=== PATIENT | female | born 1995 | race Caucasian/White ===

== ENCOUNTER → 2020-05-20 09:32 | Outpatient (BNVA) | payer MEDICAID, SELFPAY | PROVIDERS: Visit Provider Advanced Practice Midwife | DX: Z34.90 Encounter for supervision of normal pregnancy, unspecified, unspecified trimester (principal) | CPT/HCPCS: 99202 ==

== ENCOUNTER 2020-05-24 14:22 | Outpatient (REF) | payer MEDICAID, SELFPAY ==
--- NOTE | 2020-05-24 14:36 | US_ITS ---
EXAMINATION: OB ULTRASOUND CLINICAL INFORMATION: Check size and dates COMPARISON: None TECHNIQUE: Transabdominal first trimester OB ultrasound FINDINGS: The uterus is normal in size and shape. There is an intrauterine gestational sac. [place]-rump length measures 0.7 cm suggesting gestational age of 6 weeks 4 days with estimated date of delivery of 01/13/2021. heart rate is 122 bpm. There is a yolk sac. The cervix is normal appearing. The left maternal ovary is not seen. The right maternal ovary is normal and measures 2.8 x 2.1 x 2.5 cm. There is no fluid in the pelvis. US/US OB limited IMPRESSION: Single viable intrauterine . From today's measurements, gestational age is estimated at 6 weeks 4 days with estimated date of delivery of 01/13/2021.
== END 2020-05-24 14:23 | disposition home or self-care (01) ==
LOC: HO.HMGCX 14:22
PROVIDERS: Visit Provider Advanced Practice Midwife
DX: Z34.90 Encounter for supervision of normal pregnancy, unspecified, unspecified trimester (principal)
CPT/HCPCS: 76815

== ENCOUNTER → 2020-06-21 14:01 | Outpatient (BNVA) | payer MEDICAID, SELFPAY | PROVIDERS: PCP Family Medicine; Visit Provider Advanced Practice Midwife | DX: Z76.89 Persons encountering health services in other specified circumstances (principal) | CPT/HCPCS: 99212 ==

== ENCOUNTER 2020-06-25 15:12 | Outpatient (REF) | payer MEDICAID, SELFPAY ==
--- NOTE | 2020-06-25 15:19 | US_ITS ---
EXAMINATION: OBSTETRICAL ULTRASOUND, FIRST TRIMESTER HISTORY: 24-year-old at 11.1 weeks of gestation Medication exposure NT screening COMPARISON: 05/24/2020 TECHNIQUE: Real time transabdominal imaging with color and M-mode Doppler. FINDINGS: A single, live IUP CRL of 53 mm c/w 12.0wks is noted. Heart Rate: 153 beats per minute. Normal yolk sac seen. NT was 1.2.mm. NB Present The embryo appears sonographically wnl for this GA. Bilateral ovaries were within normal limits. GESTATIONAL AGE: 1. Established GA: 11.1 wks 2. GA from [facility]: 12.0 wks ESTIMATED DATE OF DELIVERY: 1. Established HIEN: 01/13/2021 2. [facility] 01[facility]07[facility] US/US OB 1T nuc measure IMPRESSION: 1. A single live IUP 2. Size equals dates 3. NT of 1.2 mm MFM Consultation: I reviewed the ultrasound findings along with significance of NT measurement. The NT of less than 3mm is generally reassuring. However, the sensitivity for T21 detection is only 60%. I reviewed the availability of serum aneuploidy screening which includes cell-free DNA and placental protein based tests. I discussed the sensitivity, false-positive rate, and other limitations associated with each test. I also reviewed the availability of invasive diagnostic tests that are associated small but definite risk of miscarriage. We also reviewed the differences between screening tests and diagnostic tests. After our discussion, she opted for the First trimester screening that is based on cell-free DNA or non-invasive testing (NIPT). N IPT was ordered today. Patient is on the Subutex 5 mg q.d. and Abilify 15 mg q.d. Although there is increased risk of adaptation syndrome noted in fetuses exposed to these agents, use of these medications during is acceptable as long as there is maternal indication. Neonatologists should be made aware at the time of delivery. There is no human data to support increased risk of congenital abnormalities associated with these two medications. However the available data is limited. The result will be faxed to your office in approximately 7 days. A follow up at 18 weeks for survey has been scheduled. Thank you very much for this referral. Total Time 30 min. (3,17,10)
== END 2020-06-25 15:13 | disposition home or self-care (01) ==
LOC: HO.US 15:12
PROVIDERS: PCP Family Medicine; Visit Provider Advanced Practice Midwife
DX: Z36.82 Encounter for antenatal screening for nuchal translucency (principal)
CPT/HCPCS: 76813

== ENCOUNTER 2020-07-01 13:26 | Outpatient (REF) | payer MEDICAID, SELFPAY ==
[2020-07-02 04:35] LABS: Syphilis Screen Nonreactive (Nonreactive)
[2020-07-02 04:42] LABS: ~HepC Num1 18.48 S/CO (0.00-0.79); ~Hepatitis C Antibody Reactive (Nonreactive)
[2020-07-02 04:50] LABS: HBsAGNum1 0.18 S/CO (0.00-0.99); HIV AB/AG Nonreactive (Nonreactive); HIV Num 1 0.08 S/CO (0.00-0.99); Hepatitis B Surface Antigen Negative (Negative)
[2020-07-02 17:18] LABS: Rubella IgG Antibody 0.99 Index
== END 2020-07-01 13:27 | disposition home or self-care (01) ==
LOC: HO.LAB 13:26
PROVIDERS: Visit Provider Advanced Practice Midwife
DX: Z34.90 Encounter for supervision of normal pregnancy, unspecified, unspecified trimester (principal)
CPT/HCPCS: 36415; 86762; 86780; 86787; 86803; 86850; 86900; 86901; 87340; 87389

== ENCOUNTER 2020-07-02 13:30 | Outpatient (REF) | payer MEDICAID, SELFPAY ==
[2020-07-02 15:01] LABS: MANUAL DIFF FLAG NO
[2020-07-02 15:15] LABS: Basophils Percent Auto 0.6 % (0-2); Eosinophils Absolute Auto 0.1 X10*3/uL (0.0-0.4); Eosinophils Percent Auto 2.5 % (0-4); Hematocrit 37.8 % (37-47); Hemoglobin 13.1 g/dl (12.0-16.0); Imm Gran Abs Auto 0.01 X10*3/uL (0.00-0.03); Imm Gran Pct Auto 0.2 % (0.0-0.4); Mean Corpuscular HGB Conc 34.7 g/dl (31.0-35.0); Mean Corpuscular Hemoglobin 30.5 pg (27.0-33.0); Mean Corpuscular Volume 88.1 fL (80-98); Monocytes Absolute Auto 0.3 X10*3/uL (0.1-1.2); Monocytes Percent Auto 5.5 % (2-11); Neutrophils Absolute Auto 2.8 X10*3/uL (2.0-8.3); Neutrophils Percent Auto 53.2 % (45-73); Platelet Count 207 X10*3/uL (160-400); Red Blood Count 4.29 X10*6/uL (4.20-5.50); Red Cell Distribution Width 11.7 % (11.0-16.0); White Blood Count 5.2 X10*3/uL (4.8-10.8)
[2020-07-02 15:26] LABS: Amphetamine Screen Urine Not Detected (Not Detect); Barbiturates, Urine Not Detected (Not Detect); Benzodiazepines Screen Urine Not Detected (Not Detect); Cannabinoid Screen Urine Not Detected (Not Detect); Cocaine Screen Urine POSITIVE (Not Detect); Opiate Screen Urine Not Detected (Not Detect); Phencyclidine Screen Urine Not Detected (Not Detect)
== END 2020-07-02 13:31 | disposition home or self-care (01) ==
LOC: HO.LAB 13:30
PROVIDERS: Visit Provider Advanced Practice Midwife
DX: Z34.90 Encounter for supervision of normal pregnancy, unspecified, unspecified trimester (principal)
CPT/HCPCS: 80307; 85025; 87086

== ENCOUNTER 2020-07-02 14:43 | Outpatient (REF) | payer MEDICAID, SELFPAY | END 2020-07-02 14:44 | disposition home or self-care (01) | LOC: HO.LNP 14:43 | DX: Z13.89 Encounter for screening for other disorder (principal) ==

== ENCOUNTER 2020-07-07 15:16 | Outpatient (REF) | payer MEDICAID, SELFPAY ==
[2020-07-07 17:58] LABS: Prothrombin Time 11.4 SEC (10.8-13.0)
[2020-07-07 18:08] LABS: Alanine Aminotransferase 26 U/L (0-31); Albumin Level 4.2 g/dL (3.5-5.0); Alkaline Phosphatase 61 U/L (39-117); Aspartate Amino Transferase 24 U/L (5-31); Bilirubin Direct < 0.2 mg/dL (0.0-0.5)
== END 2020-07-07 15:17 | disposition home or self-care (01) ==
LOC: HO.LAB 15:16
PROVIDERS: PCP Family Medicine; Visit Provider Advanced Practice Midwife
DX: O09.899 Supervision of other high risk pregnancies, unspecified trimester (principal); R76.8 Other specified abnormal immunological findings in serum; Z3A.00 Weeks of gestation of pregnancy not specified
CPT/HCPCS: 36415; 82040; 82248; 84075; 84450; 84460; 85610; 87522

== ENCOUNTER 2020-07-09 14:30 | Outpatient (REF) | payer MEDICAID, SELFPAY ==
[2020-07-09 17:20] LABS: Amphetamine Screen Urine Not Detected (Not Detect); Barbiturates, Urine Not Detected (Not Detect); Benzodiazepines Screen Urine Not Detected (Not Detect); Cannabinoid Screen Urine Not Detected (Not Detect); Cocaine Screen Urine Not Detected (Not Detect); Opiate Screen Urine Not Detected (Not Detect); Phencyclidine Screen Urine Not Detected (Not Detect)
[2020-07-10 11:46] LABS: BV Int Neg Control Negative (Negative); BV Int Pos Control Positive (Positive)
[2020-07-15 15:30] LABS: C. trachomatis RNA TMA NOT DETECTED; N. gonorrhoeae RNA TMA NOT DETECTED
== END 2020-07-09 14:31 | disposition home or self-care (01) ==
LOC: HO.LAB 14:30
PROVIDERS: PCP Family Medicine; Visit Provider Advanced Practice Midwife
DX: O09.899 Supervision of other high risk pregnancies, unspecified trimester (principal); O99.321 Drug use complicating pregnancy, first trimester; F11.21 Opioid dependence, in remission; Z3A.13 13 weeks gestation of pregnancy; Z79.899 Other long term (current) drug therapy; Z71.51 Drug abuse counseling and surveillance of drug abuser
CPT/HCPCS: 36415; 80307; 81003; 87480; 87491; 87510; 87591; 87624; 87660; 88141; 88142; 99212

== ENCOUNTER → 2020-07-13 13:27 | Outpatient (BNVA) | payer MEDICAID, SELFPAY | PROVIDERS: PCP Family Medicine; Referring Provider Advanced Practice Midwife; Visit Provider Internal Medicine ==

== ENCOUNTER → 2020-08-12 13:21 | Outpatient (BNVA) | payer MEDICAID, SELFPAY | PROVIDERS: Visit Provider Advanced Practice Midwife | DX: O99.320 Drug use complicating pregnancy, unspecified trimester (principal); O09.899 Supervision of other high risk pregnancies, unspecified trimester; F14.11 Cocaine abuse, in remission; F11.20 Opioid dependence, uncomplicated; B19.20 Unspecified viral hepatitis C without hepatic coma | CPT/HCPCS: 81003; 99212 ==

== ENCOUNTER 2020-08-17 13:11 | Outpatient (REF) | payer MEDICAID, SELFPAY ==
[2020-08-17 15:00] LABS: Amphetamine Screen Urine Not Detected (Not Detect); Barbiturates, Urine Not Detected (Not Detect); Benzodiazepines Screen Urine Not Detected (Not Detect); Cannabinoid Screen Urine Not Detected (Not Detect); Cocaine Screen Urine Not Detected (Not Detect); Opiate Screen Urine Not Detected (Not Detect); Phencyclidine Screen Urine Not Detected (Not Detect)
[2020-08-18 22:57] LABS: C. trachomatis RNA TMA NOT DETECTED (NOT DETECTED); N. gonorrhoeae RNA TMA NOT DETECTED (NOT DETECTED)
== END 2020-08-17 13:12 | disposition home or self-care (01) ==
LOC: HO.LAB 13:11
PROVIDERS: Visit Provider Advanced Practice Midwife
DX: O09.899 Supervision of other high risk pregnancies, unspecified trimester (principal); O99.320 Drug use complicating pregnancy, unspecified trimester; F14.11 Cocaine abuse, in remission
CPT/HCPCS: 36415; 80307; 87491; 87591

== ENCOUNTER 2020-08-20 | Outpatient (REF) | payer MEDICAID, SELFPAY | END 2020-08-20 00:01 | disposition home or self-care (01) | LOC: CF | PROVIDERS: Visit Provider Advanced Practice Midwife | DX: O09.899 Supervision of other high risk pregnancies, unspecified trimester (principal); O99.320 Drug use complicating pregnancy, unspecified trimester; Z36.3 Encounter for antenatal screening for malformations; Z3A.19 19 weeks gestation of pregnancy; F11.20 Opioid dependence, uncomplicated; B19.20 Unspecified viral hepatitis C without hepatic coma | CPT/HCPCS: 81003; 99212 ==

== ENCOUNTER 2020-09-10 13:55 | Outpatient (REF) | payer MEDICAID, SELFPAY ==
--- NOTE | ~2020-09-10 | US_ITS ---
EXAMINATION: US OBSTETRICAL CLINICAL INFORMATION: 24-year-old at 22.1 weeks of gestation Medication exposure Screening for anomaly COMPARISON: 06/25/2020 TECHNIQUE: Real-time transabdominal ultrasound was performed using C1-5 megahertz transducer. FINDINGS: A single, active, fetus is seen in vertex presentation. The placenta is anterior without previa, and the amniotic fluid volume is wnl. MEASUREMENTS: 1. Biparietal Diameter: 4.9 cm; 21.0 wks 2. Occipital Frontal Diameter: 7.3 cm 3. Head Circumference: 20.2 cm; 22.3 wks 4. Abdominal Circumference: 17.8 cm; 22.5 wks 5. Femur Length: 4.0 cm; 22.6 wks 6. Humerus Length: 6 3.27 cm; 22.6 wks 7. Tibia Length: 3.5 cm; 23.1 wks 8. Ulna Length: 2.94 cm; 21.0 wks 9. Lateral ventricle: 0.48 cm 10. Cerebellum: 2.2 cm; 22.0 wks 11. Cisterna Magna: 0.64 cm 12. Nuchal Fold: 5.8 mm 13. Heart Rate: 134 beats per minute Rt ovary: Unable to visualize Lt ovary: Unable to visualize Cervical length 2.8 cm on T/A. GESTATIONAL AGE: 1. Established GA: 22.1 wks 2. GA from [facility]: 22.2 wks ESTIMATED DATE OF DELIVERY: 1. Established HIEN: 01/13/2021 2. HIEN from [facility]: 01/12/2021 ANATOMY: The visualized anatomy includes but not limited to: 1. Cranium: Normal 2. Intracranial anatomy: cavum septum pellucidi, lateral ventricles, choroid plexus, cerebellum, posterior fossa, third and fourth ventricles. 3. face: orbits, lip/palate, profile, nasal bone 4. Heart: four-chamber view of the heart, ventricular septum, foramen ovale, pulmonary vein, left and right outflow tracts, three-vessel view, 3 vessel trachea view, aortic and ductal arches, situs.. 5. Diaphragm: Normal 6. Abdominal wall: Normal 7. Cord Insertion: Normal 8. Spine: Cervical, thoracic, lumbar, sacral. 9. Stomach: Normal size and shape 10. Right Kidney: Normal 11. Left Kidney: Normal 12. 3 vessel cord: Normal 13. Upper extremity: Open hands, fifth digit. 14. Lower extremity: Tibia, fibula, bilateral feet. 15. Bladder: Normal 16. Genitalia: Male, patient aware US/US OB /maternal detail IMPRESSION: 1. Single, living, intrauterine with appropriate biometry. 2. Normal survey DISCUSSION: I reviewed today's ultrasound findings. We discussed the limitations of ultrasound in diagnosing aneuploidy and other congenital abnormalities. I reviewed the differences between screening test and diagnostic test. Amniocentesis was discussed and declined. She is doing well on Subutex 5 mg q.d. and Abilify 15 mg q.d. In addition, she reports that her NIPT showed low risk. She was informed that the baseline incidence of congenital abnormalities is approximately 3-5%. Not all these conditions are diagnosable in utero. RECOMMENDATIONS: 1. Follow-up as indicated. Thank you for allowing me to participate in her care. Total time 30 minutes. The time spent was devoted to counseling the patient about the disease and diagnosis, coordinating care including reviewing her records, pertinent lab data and studies, as well as discussing diagnostic evaluation and workup, plan therapeutic interventions and future disposition of care. This includes any additional research needed to obtain further information in formulating the plan of care of this patient. This note was generated with a voice recognition program. Please excuse any errors which may have been overlooked during my review of this note. Sometimes these errors may affect the content or meaning of a given sentence.
== END 2020-09-10 13:56 | disposition home or self-care (01) ==
LOC: HO.US 13:55
PROVIDERS: Visit Provider Advanced Practice Midwife
DX: Z36.3 Encounter for antenatal screening for malformations (principal); O09.899 Supervision of other high risk pregnancies, unspecified trimester; O99.320 Drug use complicating pregnancy, unspecified trimester; F11.20 Opioid dependence, uncomplicated; B19.20 Unspecified viral hepatitis C without hepatic coma
CPT/HCPCS: 76811

== ENCOUNTER 2020-09-14 09:15 | Outpatient (REF) | payer MEDICAID, SELFPAY ==
[2020-09-14 15:15] LABS: Amphetamine Screen Urine Not Detected (Not Detect); Barbiturates, Urine Not Detected (Not Detect); Benzodiazepines Screen Urine Not Detected (Not Detect); Cannabinoid Screen Urine Not Detected (Not Detect); Cocaine Screen Urine Not Detected (Not Detect); Opiate Screen Urine Not Detected (Not Detect); Phencyclidine Screen Urine Not Detected (Not Detect)
== END 2020-09-14 09:16 | disposition home or self-care (01) ==
LOC: HO.LNP 09:15
PROVIDERS: Visit Provider Advanced Practice Midwife
DX: O98.312 Other infections with a predominantly sexual mode of transmission complicating pregnancy, second trimester (principal); A63.0 Anogenital (venereal) warts; O99.322 Drug use complicating pregnancy, second trimester; F11.20 Opioid dependence, uncomplicated; O98.412 Viral hepatitis complicating pregnancy, second trimester; B19.20 Unspecified viral hepatitis C without hepatic coma; O99.342 Other mental disorders complicating pregnancy, second trimester; F41.9 Anxiety disorder, unspecified; F31.9 Bipolar disorder, unspecified; Z3A.22 22 weeks gestation of pregnancy
CPT/HCPCS: 80307; 81003; 99212

== ENCOUNTER → 2020-10-12 14:20 | Outpatient (BNVA) | payer MEDICAID, SELFPAY | PROVIDERS: Visit Provider Advanced Practice Midwife | DX: Z34.93 Encounter for supervision of normal pregnancy, unspecified, third trimester (principal); Z3A.26 26 weeks gestation of pregnancy | CPT/HCPCS: 81003; 99212 ==

== ENCOUNTER 2020-11-18 13:57 | Outpatient (REF) | payer MEDICAID, SELFPAY | END 2020-11-18 13:58 | disposition home or self-care (01) | LOC: HO.LAB 13:57 | PROVIDERS: Visit Provider Advanced Practice Midwife | DX: O99.323 Drug use complicating pregnancy, third trimester (principal); F11.188 Opioid abuse with other opioid-induced disorder; O98.413 Viral hepatitis complicating pregnancy, third trimester; B19.20 Unspecified viral hepatitis C without hepatic coma; O99.343 Other mental disorders complicating pregnancy, third trimester; F41.8 Other specified anxiety disorders; F31.9 Bipolar disorder, unspecified; Z3A.32 32 weeks gestation of pregnancy; Z79.891 Long term (current) use of opiate analgesic; Z79.899 Other long term (current) drug therapy | CPT/HCPCS: 81003; 99212 ==

== ENCOUNTER → 2020-12-02 14:25 | Outpatient (BNVA) | payer MEDICAID, SELFPAY | PROVIDERS: Visit Provider Advanced Practice Midwife | DX: Z34.93 Encounter for supervision of normal pregnancy, unspecified, third trimester (principal); Z3A.34 34 weeks gestation of pregnancy | CPT/HCPCS: 99212 ==

== ENCOUNTER 2020-12-10 13:42 | Outpatient (REF) | payer MEDICAID, SELFPAY ==
--- NOTE | ~2020-12-10 | US_ITS ---
EXAMINATION: OBSTETRICAL ULTRASOUND, Follow up HISTORY: 24-year-old at the 35.1 weeks of gestation Size date discrepancy COMPARISON: 09/10/2020 TECHNIQUE: Real time transabdominal imaging with color and M-mode Doppler. PRESENTATION: Vertex PLACENTA LOCATION: Anterior without previa AMNIOTIC FLUID: MADI 10.5 cm MEASUREMENTS: 1. Biparietal Diameter: 8.7 cm; 35.0 wks 2. Head Circumference: 31.2 cm; 35.0 wks 3. Abdominal Circumference: 31.4 cm; 35.3 wks 4. Femur Length: 6.7 cm; 34.5 wks 5. Heart Rate: 140 beats per minute WEIGHT: EFW: 2611 grams (5 lbs 12 oz) -- 48 %. BIOPHYSICAL PROFILE: Motion: 2 Tone: 2 Breathin Amniotic Fluid: 2 Total score: 8/8 GESTATIONAL AGE: 1. Established GA: 35.1 wks 2. GA from [facility]: 35.1 wks ESTIMATED DATE OF DELIVERY: 1. Established HIEN: 01/13/2021 2. HIEN from [facility]: 01/13/2021 US/US OB follow up IMPRESSION: 1. A single active fetus is in vertex presentation 2. Size equals dates 3. Reassuring biophysical profile Thank you very much for this referral. This note was generated with a voice recognition program. Please excuse any errors which may have been overlooked during my review of this note. Sometimes these errors may affect the content or meaning of a given sentence.
[2020-12-10 15:37] LABS: Amphetamine Screen Urine Not Detected (Not Detect); Barbiturates, Urine Not Detected (Not Detect); Benzodiazepines Screen Urine Not Detected (Not Detect); Cocaine Screen Urine Not Detected (Not Detect); Opiate Screen Urine Not Detected (Not Detect); Phencyclidine Screen Urine Not Detected (Not Detect)
== END 2020-12-10 13:43 | disposition home or self-care (01) ==
LOC: HO.US 13:42
PROVIDERS: Advanced Practice Midwife; Visit Provider Advanced Practice Midwife
DX: O26.893 Other specified pregnancy related conditions, third trimester (principal); F31.9 Bipolar disorder, unspecified; Z87.898 Personal history of other specified conditions
CPT/HCPCS: 76816; 80307

== ENCOUNTER 2020-12-16 15:03 | Outpatient (REF) | payer MEDICAID, SELFPAY ==
[2020-12-17 04:52] LABS: CT PCR NOT DETECTED (Not Detect.); NG PCR NOT DETECTED (Not Detect.)
== END 2020-12-16 15:04 | disposition home or self-care (01) ==
LOC: HO.LAB 15:03
PROVIDERS: PCP Family Medicine; Visit Provider Advanced Practice Midwife
DX: O99.323 Drug use complicating pregnancy, third trimester (principal); F11.20 Opioid dependence, uncomplicated; Z79.899 Other long term (current) drug therapy
CPT/HCPCS: 81003; 87081; 87491; 87591; 99212

== ENCOUNTER 2020-12-17 11:05 | Outpatient (REF) | payer MEDICAID, SELFPAY ==
[2020-12-17 13:17] LABS: Hematocrit 36.6 % (37-47); Hemoglobin 12.1 g/dl (12.0-16.0); Mean Corpuscular HGB Conc 33.1 g/dl (31.0-35.0); Mean Corpuscular Hemoglobin 29.7 pg (27.0-33.0); Mean Corpuscular Volume 89.9 fL (80-98); Mean Platelet Volume 8.9 fL (9.4-12.3); Platelet Count 182 X10*3/uL (160-400); Red Blood Count 4.07 X10*6/uL (4.20-5.50); Red Cell Distribution Width 11.8 % (11.0-16.0); White Blood Count 7.9 X10*3/uL (4.8-10.8)
[2020-12-17 13:42] LABS: Glucose 1 Hour PP 50gm Dose 93 mg/dL (60-140)
[2020-12-17 14:05] LABS: Syphilis Screen Nonreactive (Nonreactive)
== END 2020-12-17 11:06 | disposition home or self-care (01) ==
LOC: HO.LAB 11:05
PROVIDERS: PCP Family Medicine; Visit Provider Advanced Practice Midwife
DX: O26.813 Pregnancy related exhaustion and fatigue, third trimester (principal); Z20.2 Contact with and (suspected) exposure to infections with a predominantly sexual mode of transmission
CPT/HCPCS: 36415; 85027; 86780

== ENCOUNTER → 2020-12-22 13:17 | Outpatient (BNVA) | payer MEDICAID, SELFPAY | PROVIDERS: Visit Provider Obstetrics & Gynecology | DX: O98.413 Viral hepatitis complicating pregnancy, third trimester (principal); B19.20 Unspecified viral hepatitis C without hepatic coma; O09.893 Supervision of other high risk pregnancies, third trimester; F11.11 Opioid abuse, in remission; O21.9 Vomiting of pregnancy, unspecified; Z3A.36 36 weeks gestation of pregnancy | CPT/HCPCS: 99212 ==

== ENCOUNTER → 2020-12-27 15:08 | Outpatient (BNVA) | payer MEDICAID, SELFPAY | PROVIDERS: Visit Provider Internal Medicine ==

== ENCOUNTER 2024-12-14 12:08 | Emergency (ER) | payer OTHER, SELFPAY ==
--- NOTE | ~2024-12-14 | US_ITS ---
CLINICAL HISTORY: surgical 2mo ago, sudden heavy bleeding, US pelvis transabdominal and transvaginal with Doppler Comparison: None provided Findings: Transabdominal scanning performed for overall anatomy. Transvaginal scanning performed for additional detail. Anteverted uterus is 9.3 cm length. Normal myometrium. The endometrium is abnormally thickened, heterogeneous and vascular measuring, 20 mm thickness. Right ovary 3.7 x 1.6 x 2.5 cm. Left ovary 3.5 x 2.9 x 2.8 cm. Normal color Doppler with arterial/venous spectral tracing of both ovaries. No free fluid. IMPRESSION: Heterogeneous, mildly thickened and hypervascular endometrium. If there is a positive quantitative HCG, retained products of conception could have this appearance. This document has been electronically signed by: Billy Luis MD on 12/14/2024 15:11:42
[2024-12-14 12:13] VITALS: BP 110/70; BP 115/70; PULSE 100; PULSE 96; RESP 18; TEMP 36.9; O2SAT 97; BMI 24.3
--- NOTE | 2024-12-14 12:41 | ED_ITS ---
HPI - Female Genitourinary General Chief complaint: Vaginal Bleeding Stated complaint: VAGINAL-BLEEDING Time Seen by Provider: 12/14/24 12:23 Source: patient and EMS Mode of arrival: EMS Limitations: no limitations History of Present Illness ED Provider: Rosario Garcia NP HPI Narrative: Patient is a 28-year-old female G3 [id number] past medical history of substance use disorder, hepatitis-C, bipolar disorder, anxiety who presents emergency department via EMS for evaluation. She was getting on a bus when she had abrupt onset of heavy vaginal bleeding so much so that it was pouring down her legs onto her shoes in the floor on the bus. package car driver called EMS. She admits to having a surgical 2 months ago at [facility]? does not recall which 1, reports she was approximately 3 months at the time of the . She has not had any follow-up since then. She additionally has had no menstrual cycle/vaginal bleeding since the procedure. States she has not had sexually active since. She does express concern for sexually transmitted infections reporting that she has been experiencing void/yellow vaginal discharge for months. She denies dysuria, hematuria, urinary frequency/urgency/hesitancy. She denies any diarrhea or constipation, denies concern for bloody stools; hematochezia or melena. Related Data Home Medications ?Medication ?Instructions ?Recorded ?Confirmed aripiprazole 15 mg tablet (Abilify) 15 mg PO DAILY 09/0411/25/20 vitamin with calcium 1 tab PO DAILY 06/21/20 11/25/20 no.72-iron 27 mg-folic acid 1 mg tablet ( Vitamins Plus Low Iron) buprenorphine HCl 2 mg sublingual 16 mg sublingual BONNIE LY 11/18/20 11/25/20 tablet Previous Rx's ?Medication ?Instructions ?Recorded valacyclovir 500 mg tablet 500 mg PO DAILY 30 days #30 tabs 12/02/20 (Valtrex) ondansetron HCl 4 mg tablet 4 mg PO Q6H PRN nausea and 12/22/20 (Zofran) vomiting #30 tabs Allergies Allergy/AdvReac Type Severity Reaction Status Date / Time No Known Allergies Allergy Verified 12/14/24 12:17 Review of Systems 2 Review of Systems: Yes all other systems are reviewed and are negative PMFSH Past Medical History Attestation statement: The following information was validated with the patient. Source: old records reviewed Medical History Dyslexia Normal Pap smear Hepatitis C infection Drug abuse Hepatitis C antibody positive in blood Anxiety Bipolar 1 disorder Family History Family History Mother History of drug abuse in remission Father [place] disease Lyme disease Brother No problems noted. Sister No problems noted. Maternal Grandmother No problems noted. Maternal Grandfather No problems noted. Paternal Grandmother No problems noted. Paternal Grandfather No problems noted. Social History Social History (Updated 12/27/20 @ 15:10 by Rachel Johnson [facility]) Household Members: Significant Other Household Members Other:: his mother Alcohol intake: former Patient Tobacco Use Status: Never used Tobacco Smoked in Last 30 Days: Yes Use of substances other than those prescribed or required for medical reasons: No Substance Use Type: Heroin Advance Directives: No Advance Directives Information Provided: No Sexual orientation: Straight/Heterosexual Gender identity: Female Physical Exam 2 Vital Signs: Vital Signs: Last Vital Signs Temp 98.8 F 12/14/24 18:17 Pulse 90 12/14/24 18:17 Resp 18 12/14/24 18:17 BP 117/70 12/14/24 18:17 Pulse Ox 98 12/14/24 18:17 O2 Del Method Room Air 12/14/24 18:17 BMI result Body Mass Index 24.3 Appearance: Alert.?Oriented to person, place and time. No acute distress.?Normal affect. CVS: Heart sounds normal. Normal heart rate and rhythm.? Pulses normal.?? Respiratory: No respiratory distress.? Lung sounds clear to auscultation bilaterally?? Abdomen: Soft and non-tender. Normoactive bowel sounds. No CVAT. Genitourinary:? Supervised by ___. Normal external appearance of urethra.? No lesions/lacerations or discharge or tenderness noted. No Bartholin cyst noted.? Speculum exam: normal appearance/palpation of vagina normal. No abnormal vaginal discharge, swelling, erythema, laceratons, or active bleeding noted.?No foreign bodies noted.? No vaginal tenderness noted.? Normal appearance of cervix. Normal palpation of cervix.? Cervical os is closed.? No abnormal cervical discharge noted.? No cervical lesion/mass.?? No cervical motion tenderness noted.? Negative chandelier sign.? Normal bimanual exam.? Uterine size normal. Uterine consistency normal.? Bladder normal to palpation. Normal adnexa. Normal rectovaginal exam.? Skin: Skin warm and dry.? Normal skin color.? Extremities: No lower extremity edema.? No calf ttp? Neuro: Moves all extremities spontaneously. Sensation intact bilaterally. . Ambulates with normal steady gait. Course Reevaluation(s) Reevaluation #1: I have reached out to OBGYN doctor Sagar, preliminary interpretation concerning for potential retained products conception in the setting of her recent . Advises to reach back out once official ultrasound report has been received, in addition to repeat CBC Time: 14:16 Reevaluation #2: She has tested positive for Vaginal candidiasis, plan for fluconazole. Received contact from Radiology regarding critical ultrasound findings heterogeneous mildly thickened and hypervascular endometrium concern for retained products of conception, however her hCG is 5. I have reached back out to Dr. Keith. He will be coming into evaluate the patient. Time: 15:30 Reevaluation #3: Patient was evaluated by Dr. Keith in person, but at this time that she was stable for discharge home should her repeat H&H not show any acute drop, outpatient follow-up in 48 hours in their office. Patient was given strict return precautions. Medications Administered Discontinued Medications Generic Name Dose Route Start Last Admin Trade Name Freq PRN Reason Stop Dose Admin Fluconazole 150 mg 12/14/24 17:02 12/14/24 17:31 Fluconazole 150 Mg Tablet PO 12/14/24 17:03 150 mg ONCE ONE Administration Medical Decision Making Medical Decision Making [facility] Narrative: Patient is a 28-year-old female G3 [id number] past medical history of substance use disorder, hepatitis-C, bipolar disorder, anxiety who presents emergency department via EMS for evaluation onset vaginal bleeding as per HPI. She endorses having had a surgical 2 months ago at a ?[facility]?, accessed [facility] without any records, [facility] [employer] records without any successful search results. Has not had any bleeding since the procedure she did not have any subsequent follow-up. She does admit to having associated vaginal discharge as per HPI. Concern at this time for retained POC, new early with spontaneous , threatened , PID, otitis, STI. Obtaining serum labs in addition to type and screen, pelvic ultrasound for further evaluation. Differential Diagnosis Differential Diagnoses: The differential diagnosis associated with the presentation includes (See narrative above) Admission/Observation Consideration of admission/observation: Escalation of care including admission/observation considered Consult Healthcare Provider Management of the patient was discussed with: Thermometer Production Worker Lab Data MDM Lab Attestation statement: I reviewed the patient's lab results. CBC without leukocytosis, initial H & H without anemia, no thrombocytopenia. No CB, no CHRISTOFER. LFTs unremarkable. Beta HCG of 5 12/14/24 18:05 12/14/24 13:06 Labs: Lab Results 12/14/24 12/14/24 12/14/24 Range/Units 13:06 14:11 18:05 WBC 9.5 9.5 (4.8-10.8) X10*3/uL RBC 4.30 4.25 (4.20-5.50) X10*6/uL Hgb 13.6 13.6 (12.0-16.0) g/dl Hct 38.0 37.8 (37.0-47.0) % MCV 88.4 88.9 (80.0-98.0) fL MCH 31.6 32.0 (27.0-33.0) pg MCHC 35.8 H 36.0 H (31.0-35.0) g/dl RDW 11.3 11.3 (11.0-16.0) % Plt Count 285 275 (160-400) X10*3/uL MPV 7.7 L 7.7 L (9.4-12.3) fL Immature Gran % (Auto) 0.3 0.2 (0.0-0.4) % Neut % (Auto) 57.6 52.5 (45-73) % Lymph % (Auto) 34.0 37.9 (20-40) % [place] % (Auto) 7.4 7.9 (2-11) % Eos % (Auto) 0.3 0.9 (0-4) % Baso % (Auto) 0.4 0.6 (0-2) % Lymph # (Auto) 3.2 3.6 (1.2-4.9) X10*3/uL [place] # (Auto) 0.7 0.8 (0.1-1.2) X10*3/uL Eos # (Auto) 0.0 0.1 (0.0-0.4) X10*3/uL Baso # (Auto) 0.0 0.1 (0.0-0.2) X10*3/uL Abs Immat Gran (auto) 0.03 0.02 (0.00-0.03) X10*3/uL Absolute Neuts (auto) 5.5 5.0 (2.0-8.3) x10*3/uL Absolute Nucleated RBC 0.000 0.000 (0.0-0.012) X10*3/uL Nucleated RBC % (auto) 0.0 0.0 (0.0-0.2) /100WBC Sodium 143 (135-145) mmol/L Potassium 3.6 (3.3-5.1) mmol/L Chloride 111 H (96-108) mmol/L Carbon Dioxide 21 L (22-29) mmol/L Anion Gap 15 (12-20) BUN 6 L (9-16) mg/dL Creatinine 0.70 (0.5-1.4) mg/dL Estim Creat Clear Calc 103.1 Estimated GFR > 60 Random Glucose 88 (60-115) mg/dL Calcium 9.0 (8.4-10.2) mg/dL Total Bilirubin 0.6 (0.0-1.0) mg/dL AST 24 (5-31) U/L ALT 28 (0-31) U/L Alkaline Phosphatase 66 (39-117) U/L Total Protein 7.5 (6.5-8.0) g/dL Albumin 4.7 (3.5-5.0) g/dL Beta HCG, Quant 5 mIU/mL T. vaginalis (PCR) NOT DETECTED (Not Detect) Bact vaginosis (PCR) NEGATIVE (Negative) C. krusei/glabrata (PCR) NOT DETECTED (Not Detect) Yolande group (PCR) DETECTED A (Not Detect) Blood Type O Positive Antibody Screen NEGATIVE Discharge Plan Discharge Clinical Impression: Vaginal bleeding, Candidiasis of vagina Patient Disposition: Home, Self-Care Instructions: Yeast Infection (ED) Additional Instructions: You were seen in the emergency department today for evaluation of vaginal bleeding. You had 2 blood counts obtained which were normal and unchanged is reassuring. You were seen by our OBGYN in the setting of having had a recent surgical ; as reviewed this may be due to retained products of conception, 1st menstrual cycle after the . Options for management were discussed with the you and you will follow-up in OBGYN office 48 hours for repeat blood levels; hCG and CBC. Return back to emergency department any new or worsening symptoms or concerns which include but is not limited to fevers, chills, abdominal or back pain, worsening or heavy bleeding, nausea and persistent vomiting, dizziness, lightheadedness, near passing out. You were also found to have a yeast infection today of the vagina, you were given a medication Diflucan, you were given a one time dose to help treat the infection. If you continue to have any abnormal vaginal discharge please seek re-evaluation. Prescriptions: No Action ondansetron HCl [Zofran] 4 mg tablet 4 mg PO Q6H PRN (Reason: nausea and vomiting) Qty: 30 0RF aripiprazole [Abilify] 15 mg tablet 15 mg PO DAILY Vitamin Plus Low Iron 27 mg iron- 1 mg tablet 1 tab PO DAILY buprenorphine HCl 2 mg tablet, sublingual 16 mg sublingual DAILY Patient Comments: pt is taking 8 mg twice a day valacyclovir [Valtrex] 500 mg tablet 500 mg PO DAILY 30 Days Qty: 30 3RF Referrals: Ron Keith MD [Physician, SLAB CONDITIONER SUPERVISOR] Print Language: Estonian
[2024-12-14 13:12] LABS: MANUAL DIFF FLAG NO
[2024-12-14 13:13] LABS: Basophils Percent Auto 0.4 % (0-2); Eosinophils Percent Auto 0.3 % (0-4); Hemoglobin 13.6 g/dl (12.0-16.0); Imm Gran Abs Auto 0.03 X10*3/uL (0.00-0.03); Imm Gran Pct Auto 0.3 % (0.0-0.4); Lymphocytes Absolute Auto 3.2 X10*3/uL (1.2-4.9); Mean Corpuscular HGB Conc 35.8 g/dl (31.0-35.0); Mean Corpuscular Hemoglobin 31.6 pg (27.0-33.0); Mean Corpuscular Volume 88.4 fL (80.0-98.0); Mean Platelet Volume 7.7 fL (9.4-12.3); Monocytes Absolute Auto 0.7 X10*3/uL (0.1-1.2); Monocytes Percent Auto 7.4 % (2-11); Neutrophils Absolute Auto 5.5 x10*3/uL (2.0-8.3); Neutrophils Percent Auto 57.6 % (45-73); Platelet Count 285 X10*3/uL (160-400); Red Cell Distribution Width 11.3 % (11.0-16.0); White Blood Count 9.5 X10*3/uL (4.8-10.8)
[2024-12-14 13:32] LABS: Alanine Aminotransferase 28 U/L (0-31); Albumin Level 4.7 g/dL (3.5-5.0); Alkaline Phosphatase 66 U/L (39-117); Anion Gap 15 (12-20); Aspartate Amino Transferase 24 U/L (5-31); Bilirubin Total 0.6 mg/dL (0.0-1.0); Blood Urea Nitrogen 6 mg/dL (9-16); Carbon Dioxide 21 mmol/L (22-29); Chloride 111 mmol/L (96-108); Creatinine Clr Calc Pharmacy 103.1; Estimated Glomerular Filt Rate > 60; Glucose Random 88 mg/dL (60-115); HCG Quantitative 5 mIU/mL; Potassium 3.6 mmol/L (3.3-5.1); Sodium 143 mmol/L (135-145); Total Protein 7.5 g/dL (6.5-8.0)
--- NOTE | 2024-12-14 15:13 | US_ITS ---
[address] [address] Ultrasound Report Signed with Paul Patient: Radha Lima MR#: [id number] : 1995 Acct:[id number] Age/Sex: 28 / F ADM Date: 5 Loc: .ED Attending Dr: Ordering Physician: Rosario Garcia CNP Date of Service: 12/14/24 Procedure(s): US Pelvic and transvaginal Accession Number(s): [id number] cc: Rosario Garcia CNP; Physician,None ~ ADDENDUM This document has been electronically signed by: Billy Luis MD on 12/14/2024 15:11:42 ADDENDUM: This report was discussed with Argentina Romero RN on Dec 14, 2024 15:14:00 EDT. This document has been electronically signed by: Theresa Natarajan on 12/14/2024 15:14:28 Addendum Dictated By: Billy Luis MD Addendum Signed By: <Electronically signed by iBlly Luis MD in O V> 12/14/241514 Addendum Cosigned By: DD/ TD/TT: 12/14/24 CLINICAL HISTORY: surgical 2mo ago, sudden heavy bleeding, US pelvis transabdominal and transvaginal with Doppler Comparison: None provided Findings: Transabdominal scanning performed for overall anatomy. Transvaginal scanning performed for additional detail. Anteverted uterus is 9.3 cm length. Normal myometrium. The endometrium is abnormally thickened, heterogeneous and vascular measuring, 20 mm thickness. Right ovary 3.7 x 1.6 x 2.5 cm. Left ovary 3.5 x 2.9 x 2.8 cm. Normal color Doppler with arterial/venous spectral tracing of both ovaries. No free fluid. IMPRESSION: Heterogeneous, mildly thickened and hypervascular endometrium. If there is a positive quantitative HCG, retained products of conception could have this appearance. This document has been electronically signed by: Billy Luis MD on 12/14/2024 15:11:42 Dictated By: Billy Luis MD Signed By: <Electronically signed by Billy Luis MD in OV> 12/14/24 1513 DD/ 151 TD/TT: 12/14/241510Transcriptionist: DASH
[2024-12-14 15:15] LABS: Bacterial Vaginosis PCR NEGATIVE (Negative); Candida Group PCR DETECTED (Not Detect); Candida glab krusei PCR NOT DETECTED (Not Detect); Trichomonas vaginalis PCR NOT DETECTED (Not Detect)
--- NOTE | 2024-12-14 16:01 | P.CONOB_ITS ---
DRAW [employer] WORK[employer] - CN: HPI Data of Consult Consult date: 12/14/24 Primary Care Provider: None Physician Consult Narrative Narrative: I was consulted on Summer Clarence is a 28 year old female presenting to the emergency room with a episode of vaginal bleeding and stopped 30 minutes prior to presentation. The patient had suction D&C it 12 weeks of gestation 2 months ago at [facility] pain since then was doing well with no vaginal bleeding, pelvic cramping or any other concerns. The bleeding seem to have resolved within an 2 hours of presentation 1306 H&H 13.6/38 HCG 5 O positive 15:31 Pelvic ultrasound showed the following: Findings: Transabdominal scanning performed for overall anatomy. Transvaginal scanning performed for additional detail. Anteverted uterus is 9.3 cm length. Normal myometrium. The endometrium is abnormally thickened, heterogeneous and vascular measuring, 20 mm thickness. Right ovary 3.7 x 1.6 x 2.5 cm. Left ovary 3.5 x 2.9 x 2.8 cm. Normal color Doppler with arterial/venous spectral tracing of both ovaries. No free fluid. IMPRESSION: Heterogeneous, mildly thickened and hypervascular endometrium. If there is a positive quantitative HCG, retained products of conception could have this appearance.: cc:: CC: OB [facility] Past Medical History Medical History Dyslexia Normal Pap smear Hepatitis C infection Drug abuse Hepatitis C antibody positive in blood Anxiety Bipolar 1 disorder Family History Family History Mother History of drug abuse in remission Father Shweta disease Lyme disease Brother No problems noted. Sister No problems noted. Maternal Grandmother No problems noted. Maternal Grandfather No problems noted. Paternal Grandmother No problems noted. Paternal Grandfather No problems noted. Social History Social History (Updated 12/27/20 @ 15:10 by Rachel Johnson CMA) Household Members: Significant Other Household Members Other:: his mother Both parents involved: Yes Alcohol intake: former Patient Tobacco Use Status: Never used Tobacco Substance Use Type: Heroin Sexual orientation: Straight/Heterosexual Gender identity: Female Meds Allergies Allergy/AdvReac Type Severity Reaction Status Date / Time No Known Allergies Allergy Verified 12/14/24 12:17 Home Medications ?Medication ?Instructions ?Recorded ?Confirmed ?Last Taken ?Type aripiprazole 15 mg tablet (Abilify) 15 mg PO DAILY 09/0411/25/20 Unknown History vitamin with calcium 1 tab PO DAILY 06/21/20 11/25/20 Unknown History no.72-iron 27 mg-folic acid 1 mg tablet ( Vitamins Plus Low Iron) buprenorphine HCl 2 mg sublingual 16 mg sublingual BONNIE LY 11/18/20 11/25/20 Unknown History tablet D[employer] Physical Exam Vitals Vital signs: Temp Pulse Resp BP Pulse Ox O2 Del Method 98.4 F 96 18 115/70 97 Room Air 12/14/24 12:13 12/14/24 12:13 12/14/24 12:13 12/14/24 12:13 12/14/24 12:13 12/14/24 12:13 BMI result Body Mass Index 24.3 Abdomen Auscultation/Inspection/Palpation: Normal bowel sounds, Soft and No tenderness Female Genitalia (Pelvic) Bladder/Urethra: Normal meatus Vulva: No lesions Mass Location: [place] Vagina: Nontender Cervix: Grossly normal Uterus: Normal size Adnexa/Parametria: Adnexal Tenderness: None, Adnexal Mass: None, Parametrial Tenderness: None and Parametrial Mass: None D[employer] WORKER - Results Labs 12/14/24 18:05 12/14/24 13:06 Labs: Short CBC 12/14/24 Range/Units 13:06 WBC 9.5 (4.8-10.8) X10*3/uL Hgb 13.6 (12.0-16.0) g/dl Hct 38.0 (37.0-47.0) % Plt Count 285 (160-400) X10*3/uL BMP 12/14/24 13:06 Sodium 143 Potassium 3.6 Chloride 111 H Carbon Dioxide 21 L BUN 6 L Creatinine 0.70 Calcium 9.0 Liver Function 12/14/24 Range/Units 13:06 Total Bilirubin 0.6 (0.0-1.0) mg/dL AST 24 (5-31) U/L ALT 28 (0-31) U/L Alkaline Phosphatase 66 (39-117) U/L Albumin 4.7 (3.5-5.0) g/dL Antibody Screen Antibody Screen NEGATIVE 12/14/24 13:06 Assessment and Plan (1) Vaginal bleeding: Status: Acute 14:14 received [employer] message regarding the patient no official report, no active bleeding, hCG 5, H and H within normal, recommended to NADYA Eli to reach out when official report is available 15:31 official report sent showing heterogenous mildly thickened and hypervascular endometrium if there is a positive hCG, retained products of conception could have this appearance Asked to put the patient on gynaecological oncologist stretcher to be evaluated 16:00 the patient evaluate. discussed with the patient the findings on ultrasound, stable H&H, finding on pelvic exam minimal vaginal bleeding with no evidence of active VB, no cervical motion tenderness uterine tenderness or adnexal tenderness.. Differential diagnosis was discussed with the patient including but not limited to AUB, retained products of conception others. Options of treatment were discussed with the patient including expectant management, misoprostol treatment for possible retained products of conception or suction D&C. All pros and cons, risks and benefits of each approach were discussed with the patient, the patient decided to proceed with expectant management. Will questions answered, the patient verbalized understanding. Discuss this case and Recommended to NADYA Goldberg the following: Observation for vaginal bleeding, if bleeding stays minimal, repeat H and H if stable the patient is to be discharged home with the following instructions to come back to emergency room in case of heavy vaginal bleeding, pelvic, fever above for and follow-up in office within 2 days with repeat hCG and CBC.
[2024-12-14] MEDS: Fluconazole 150 MG TABLET PO (17:31)
[2024-12-14 18:10] LABS: Basophils Absolute Auto 0.1 X10*3/uL (0.0-0.2); Basophils Percent Auto 0.6 % (0-2); Eosinophils Absolute Auto 0.1 X10*3/uL (0.0-0.4); Eosinophils Percent Auto 0.9 % (0-4); Hematocrit 37.8 % (37.0-47.0); Hemoglobin 13.6 g/dl (12.0-16.0); Imm Gran Abs Auto 0.02 X10*3/uL (0.00-0.03); Imm Gran Pct Auto 0.2 % (0.0-0.4); Lymphocytes Absolute Auto 3.6 X10*3/uL (1.2-4.9); Lymphocytes Percent Auto 37.9 % (20-40); MANUAL DIFF FLAG NO; Mean Corpuscular Volume 88.9 fL (80.0-98.0); Mean Platelet Volume 7.7 fL (9.4-12.3); Monocytes Absolute Auto 0.8 X10*3/uL (0.1-1.2); Monocytes Percent Auto 7.9 % (2-11); Neutrophils Percent Auto 52.5 % (45-73); Platelet Count 275 X10*3/uL (160-400); Red Blood Count 4.25 X10*6/uL (4.20-5.50); Red Cell Distribution Width 11.3 % (11.0-16.0); White Blood Count 9.5 X10*3/uL (4.8-10.8)
[2024-12-14 18:17] VITALS: BP 117/70; PULSE 90; RESP 18; TEMP 37.1; O2SAT 98
[2024-12-14 19:02] VITALS: BP 117/70; PULSE 90; RESP 18; TEMP 37.1; O2SAT 98
[2024-12-15 13:51] LABS: CT PCR NOT DETECTED (Not Detect.); NG PCR NOT DETECTED (Not Detect.)
== END 2024-12-14 19:02 | disposition home or self-care (01) ==
PROVIDERS: Nurse Practitioner Family; Emergency Provider Emergency Medicine
DX: N93.9 Abnormal uterine and vaginal bleeding, unspecified (principal); B37.31 Acute candidiasis of vulva and vagina; R10.2 Pelvic and perineal pain; Z79.899 Other long term (current) drug therapy
CPT/HCPCS: 36415; 76801; 76817; 76830; 76856; 80053; 81515; 84702; 85025; 86850; 86900; 86901; 87491; 87591; 99284

== ENCOUNTER → 2024-12-14 12:19 | Outpatient (BNV) | payer OTHER, SELFPAY | PROVIDERS: Emergency Provider Emergency Medicine; Visit Provider Obstetrics & Gynecology | DX: N93.9 Abnormal uterine and vaginal bleeding, unspecified (principal) | CPT/HCPCS: 99284 ==

== ENCOUNTER → 2024-12-14 12:37 | Outpatient (BNV) | payer OTHER, SELFPAY | PROVIDERS: Emergency Provider Emergency Medicine; Visit Provider Radiology Vascular & Interventional Radiology | DX: N93.9 Abnormal uterine and vaginal bleeding, unspecified (principal) | CPT/HCPCS: 76830; 76856 ==